=== PATIENT | male | born 1960 | race American Indian/Alaskan Native ===

== ENCOUNTER 2017-02-04 10:36 | Emergency (ER) | payer SELFPAY ==
[2017-02-04 11:30] VITALS: BP 130/95
[2017-02-04 12:10] LABS: Basophils % (Auto) 0.6 % (0.0-1.8); Eosinophils % (Auto) 1.8 % (0.0-4.3); Hematocrit 42.8 % (35.5-45.6); Hemoglobin 13.9 gm/dl (11.8-15.2); Mean Corpuscular HGB Conc 33 % (32-34); Mean Corpuscular Volume 80 fl (84-94); Platelet Count 159 K/mm3 (140-440); Red Blood Count 5.37 M/mm3 (3.65-5.03); White Blood Count 5.9 K/mm3 (4.5-11.0)
[2017-02-04 12:19] LABS: Mean Corpuscular Hemoglobin 26 pg (28-32)
[2017-02-04 12:26] LABS: Anion Gap 19 mmol/L; Blood Urea Nitrogen 33 mg/dL (9-20); Calcium 9.4 mg/dL (8.4-10.2); Carbon Dioxide 23 mmol/L (22-30); Chloride 99.9 mmol/L (98-107); Glucose 77 mg/dL (75-100); Potassium 3.3 mmol/L (3.6-5.0); Sodium 139 mmol/L (137-145)
[2017-02-04 12:30] LABS: Bilirubin,Urine NEG (Negative); Blood,Urine NEG (Negative); Ketones,Urine NEG (Negative); Leukocyte Esterase,Urine NEG (Negative); Mucus,Urine FEW /HPF; Nitrite,Urine NEG (Negative); Urobilinogen,Urine < 2.0 mg/dL (<2.0)
--- NOTE | 2017-02-07 13:47 | ED Elopement Review ---
ED Pt Elopement review - Results review Lab results: Laboratory Tests 02/04/17 02/04/17 02/04/17 11:32 11:43 11:43 WBC 5.9 RBC 5.37 H Hgb 13.9 Hct 42.8 MCV 80 L MCH 26 L MCHC 33 RDW 14.0 Plt Count 159 Lymph % (Auto) 54.5 H [place] % (Auto) 7.9 H Eos % (Auto) 1.8 Baso % (Auto) 0.6 Lymph # 3.2 [place] # 0.5 Eos # 0.1 Baso # 0.0 Seg Neutrophils % 35.2 L Seg Neutrophils # 2.1 Sodium 139 Potassium 3.3 L Chloride 99.9 Carbon Dioxide 23 Anion Gap 19 BUN 33 H Creatinine 1.2 Estimated GFR > 60 BUN/Creatinine Ratio 27.50 Glucose 77 POC Glucose 130 H Calcium 9.4 Urine Color Urine Turbidity Urine pH Ur Specific [place] Urine Protein Urine Glucose (UA) Urine Ketones Urine Blood Urine Nitrite Urine Bilirubin Urine Urobilinogen Ur Leukocyte Esterase Urine WBC (Auto) Urine RBC (Auto) U Epithel Cells (Auto) Urine Mucus 02/04/17 12:15 WBC RBC Hgb Hct MCV MCH MCHC RDW Plt Count Lymph % (Auto) [place] % (Auto) Eos % (Auto) Baso % (Auto) Lymph # [place] # Eos # Baso # Seg Neutrophils % Seg Neutrophils # Sodium Potassium Chloride Carbon Dioxide Anion Gap BUN Creatinine Estimated GFR BUN/Creatinine Ratio Glucose POC Glucose Calcium Urine Color Yellow Urine Turbidity Clear Urine pH 6.0 Ur Specific [place] 1.025 Urine Protein 30 mg/dl Urine Glucose (UA) Neg Urine Ketones Neg Urine Blood Neg Urine Nitrite Neg Urine Bilirubin Neg Urine Urobilinogen < 2.0 Ur Leukocyte Esterase Neg Urine WBC (Auto) 3.0 Urine RBC (Auto) 3.0 U Epithel Cells (Auto) < 1.0 Urine Mucus Few - Call Back decision Pt Call Back Decision: No action required
== END 2017-02-04 18:30 | disposition left against medical advice (07) ==
LOC: ED 10:36
DX: Z53.21 Procedure and treatment not carried out due to patient leaving prior to being seen by health care provider (principal)
CPT/HCPCS: 36415; 80048; 81001; 82962; 85025

== ENCOUNTER 2018-05-22 11:25 | Emergency (ER) | payer SELFPAY ==
[2018-05-22 11:40] VITALS: BP 131/89
--- NOTE | 2018-05-22 12:15 | Emergency Department Report ---
Minor Respiratory - HPI Chief Complaint: Upper Respiratory Infection Stated Complaint: CHEST/FEVER/CHILLS Time Seen by Provider: 05/22/18 12:04 Duration: 3 Days Pain Location: Nose Severity: mild Minor Respiratory: Yes Rhinorrhea, Yes Able to Tolerate Fluids, Yes Cough, Yes Fever, No Sore Throat, No Ear Pain, No Shortness of Breath Other History: Ms. Isaac is a 57-year-old male with history of diabetes and hypertension who presents with cough congestion and body aches. Slight wheezing. Patient has a history of tobacco abuse. He requests pain medicine for chronic neck pain due to cervical disc disease. ED Review of Systems ROS: Stated complaint: CHEST/FEVER/CHILLS Other details as noted in HPI Constitutional: fever, malaise Respiratory: cough Gastrointestinal: denies: abdominal pain, nausea, vomiting Neurological: denies: headache, numbness, paresthesias ED Past Medical Hx - Past Medical History Hx Hypertension: Yes Hx Diabetes: Yes - Surgical History Additional Surgical History: back fusion lower L-4&L5 - Social History Smoking Status: Never Smoker Substance Use Type: None - Medications Home Medications: Home Medications Medication Instructions Recorded Confirmed Last Taken Type Doxycycline Hyclate [Doxycycline 100 mg PO Q12HR 7 Days #14 tab 05/22/18 Unknown Rx Hyclate TAB] HYDROcodone/APAP 5-325 [[place] 1 each PO Q6HR PRN #10 tablet 05/22/18 Unknown Rx 5/325] predniSONE [Deltasone] 3 tab PO QDAY 4 Days #12 tab 05/22/18 Unknown Rx Minor Respiratory Exam - Exam General: Vital signs noted. No distress. Alert and acting appropriately. HEENT: Yes Moist Mucous Membranes, Yes Rhinorrhea, No Pharyngeal Erythema, No Pharyngeal Exudates, No Conjuctival Injection Neck: Yes Supple Lungs: Yes Good Air Exchange, Yes Wheezes (slight expiratory wheezes), Yes Cough , No Ronchi, No Stridor, No Labored Respirations, No Retractions, No Use of Accessory Muscles Heart: Yes Regular, No Murmur Abdomen: No Tenderness, No Peritoneal Signs Neurologic: Alert and oriented, no deficits. Musculoskeletal: Unremarkable. ED Course Vital Signs 05/22/18 11:38 Temperature 98.6 F Pulse Rate 65 Respiratory 20 Rate Blood Pressure 131/89 O2 Sat by Pulse 97 Oximetry ED Medical Decision Making - Medical Decision Making Procedure Poncho is a 57-year-old male presents with upper and lower respiratory symptoms. History of tobacco abuse, antibiotics are indicated. Prescribed doxycycline as well as prednisone. Given 10 tablets of [place] for chronic neck pain. [facility] for [facility] care. Strongly recommended smoking cessation. Critical care attestation.: If time is entered above; I have spent that time in minutes in the direct care of this critically ill patient, excluding procedure time. ED Disposition Clinical Impression: Acute bronchitis, Tobacco abuse, Chronic neck pain Disposition: TO HOME OR SELFCARE Is pt being admited?: No Does the pt Need Aspirin: No Condition: Stable Instructions: Acute Bronchitis (ED), How to Stop Smoking (ED) Prescriptions: Doxycycline Hyclate [Doxycycline Hyclate TAB] 100 mg PO Q12HR 7 Days #14 tab HYDROcodone/APAP 5-325 [[place] 5/325] 1 each PO Q6HR PRN #10 tablet PRN Reason: Pain predniSONE [Deltasone] 3 tab PO QDAY 4 Days #12 tab
== END 2018-05-22 12:20 | disposition home or self-care (01) ==
LOC: ED 11:25
DX: J20.9 Acute bronchitis, unspecified (principal); G89.29 Other chronic pain; M54.2 Cervicalgia; I10 Essential (primary) hypertension; E11.9 Type 2 diabetes mellitus without complications; F17.200 Nicotine dependence, unspecified, uncomplicated; Z88.9 Allergy status to unspecified drugs, medicaments and biological substances
CPT/HCPCS: 93005; 93010; 99282

== ENCOUNTER 2018-11-13 08:39 | Emergency (ER) | payer OTHER ==
[2018-11-13 09:34] LABS: Basophils % (Auto) 0.9 % (0.0-1.8); Eosinophils # (Auto) 0.1 K/mm3 (0.0-0.4); Eosinophils % (Auto) 2.4 % (0.0-4.3); Hematocrit 42.9 % (35.5-45.6); Hemoglobin 14.1 gm/dl (11.8-15.2); Lymphocytes # (Auto) 1.8 K/mm3 (1.2-5.4); Lymphocytes % (Auto) 34.7 % (13.4-35.0); Mean Corpuscular HGB Conc 33 % (32-34); Mean Corpuscular Volume 82 fl (84-94); Monocytes # (Auto) 0.5 K/mm3 (0.0-0.8); Monocytes % (Auto) 8.9 % (0.0-7.3); Platelet Count 233 K/mm3 (140-440); Red Blood Count 5.25 M/mm3 (3.65-5.03)
[2018-11-13 09:49] LABS: BUN/Creatinine Ratio 13; Blood Urea Nitrogen 10 mg/dL (9-20); Calcium 9.2 mg/dL (8.4-10.2); Hemolysis Index 22
[2018-11-13] MEDS ORDERED: ATIVAN IM PRN (10:20)
[2018-11-13] MEDS ORDERED: K-DUR PO ONE (10:20)
[2018-11-13] MEDS ORDERED: HALDOL IM PRN (10:20)
--- NOTE | 2018-11-13 10:29 | Emergency Department Report ---
ED General Adult HPI - General Chief complaint: Psych Stated complaint: SI Time Seen by Provider: 11/13/18 10:19 Source: patient, RN notes reviewed, old records reviewed Mode of arrival: Ambulatory Limitations: No Limitations - History of Present Illness Initial comments: This is a 58-year-old gentleman. The patient presents to the emergency room today with a complaint of suicidality. He denies homicidality. He denies hallucinations. He reports th at he plans to jump into a [place] and drown himself. His symptoms are constant. He reports no aggravating or relieving factors. He denies intention to overdose. On review of systems, also admits to chronic nonradiating, nontraumatic lower back pain. -: Gradual, days(s), month(s) Location: back Radiation: non-radiation Severity scale (0 -10): 0 Quality: aching Consistency: constant Improves with: none Worsens with: none - Related Data Previous Rx's Medication Instructions Recorded Last Taken Type HYDROcodone/APAP 5-325 [[place] 1 each PO Q6HR PRN #10 tablet 05/22/18 Unknown Rx 5/325] predniSONE [Deltasone] 3 tab PO QDAY 4 Days #12 tab 05/22/18 Unknown Rx Allergies Allergy/AdvReac Type Severity Reaction Status Date / Time gabapentin Allergy Anaphylaxis Verified 05/22/18 11:38 ED Review of Systems ROS: Stated complaint: SI Other details as noted in HPI Constitutional: malaise. denies: fever Eyes: denies: vision change ENT: denies: epistaxis Respiratory: denies: cough Cardiovascular: denies: chest pain Genitourinary: denies: dysuria Musculoskeletal: back pain Neurological: denies: headache Psychiatric: depression, suicidal thoughts. denies: homicidal thoughts ED Past Medical Hx - Past Medical History Hx Hypertension: Yes Hx Diabetes: Yes - Surgical History Past Surgical History?: Yes Additional Surgical History: back fusion lower L-4&L5 - Social History Smoking Status: Never Smoker Substance Use Type: None - Medications Home Medications: Home Medications Medication Instructions Recorded Confirmed Last Taken Type HYDROcodone/APAP 5-325 [[place] 1 each PO Q6HR PRN #10 tablet 05/22/18 11/13/18 Unknown Rx 5/325] predniSONE [Deltasone] 3 tab PO QDAY 4 Days #12 tab 05/22/18 11/13/18 Unknown Rx ED Physical Exam - General Limitations: No Limitations General appearance: alert, in no apparent distress - Head Head exam: Present: atraumatic, normocephalic - Eye Eye exam: Present: normal appearance, EOMI. Absent: nystagmus - ENT ENT exam: Present: normal exam, normal orophraynx, mucous membranes moist, normal external ear exam - Neck Neck exam: Present: normal inspection, full ROM. Absent: tenderness, meningismus - Respiratory Respiratory exam: Present: normal lung sounds bilaterally. Absent: respiratory distress, wheezes, rales, rhonchi, stridor, chest wall tenderness - Cardiovascular Cardiovascular Exam: Present: regular rate, normal rhythm, normal heart sounds. Absent: bradycardia, tachycardia, irregular rhythm, systolic murmur, diastolic murmur, rubs, gallop - GI/Abdominal GI/Abdominal exam: Present: soft. Absent: distended, tenderness, guarding, rebound, rigid, pulsatile mass - Rectal Rectal exam: Present: deferred - Extremities Exam Extremities exam: Present: normal inspection, full ROM, other (2+ pulses noted in the bilateral upper, lower extremities. Compartments soft. No long bony tenderness. The pelvis is stable.). Absent: pedal edema, joint swelling, calf tenderness - Back Exam Back exam: Present: normal inspection, full ROM. Absent: tenderness, CVA tenderness (R), paraspinal tenderness, vertebral tenderness - Neurological Exam Neurological exam: Present: alert, normal gait, other (Extraocular movements intact. Tongue midline. No facial droop. Facial sensation intact to light touch in the V1, V2, V3 distribution bilaterally. 5 and 5 strength in 4 extremities.. Sensation is intact to light touch in 4 extremities.). Absent: motor sensory deficit - Psychiatric Psychiatric exam: Present: agitated, suicidal ideation - Skin Skin exam: Present: warm, dry, intact, normal color. Absent: rash ED Course Vital Signs 11/13/18 08:46 Temperature 97.5 F L Pulse Rate 73 Respiratory 20 Rate Blood Pressure 141/109 [Right] O2 Sat by Pulse 98 Oximetry ED Medical Decision Making - Lab Data Result diagrams: 11/13/18 09:16 11/13/18 09:16 Vital Signs 11/13/18 08:46 Temperature 97.5 F L Pulse Rate 73 Respiratory 20 Rate Blood Pressure 141/109 [Right] O2 Sat by Pulse 98 Oximetry Lab Results 11/13/18 11/13/18 11/13/18 Range/Units 09:16 09:16 09:16 WBC (4.5-11.0) K/mm3 RBC (3.65-5.03) M/mm3 Hgb (11.8-15.2) gm/dl Hct (35.5-45.6) % MCV (84-94) fl MCH (28-32) pg MCHC (32-34) % RDW (13.2-15.2) % Plt Count (140-440) K/mm3 Lymph % (Auto) (13.4-35.0) % [place] % (Auto) (0.0-7.3) % Eos % (Auto) (0.0-4.3) % Baso % (Auto) (0.0-1.8) % Lymph # (1.2-5.4) K/mm3 [place] # (0.0-0.8) K/mm3 Eos # (0.0-0.4) K/mm3 Baso # (0.0-0.1) K/mm3 Seg Neutrophils % (40.0-70.0) % Seg Neutrophils # (1.8-7.7) K/mm3 Sodium 141 (137-145) mmol/L Potassium 3.2 L (3.6-5.0) mmol/L Chloride 103.1 (98-107) mmol/L Carbon Dioxide 25 (22-30) mmol/L Anion Gap 16 mmol/L BUN 10 (9-20) mg/dL Creatinine 0.8 (0.8-1.5) mg/dL Estimated GFR > 60 ml/min BUN/Creatinine Ratio 13 % Glucose 111 H (75-100) mg/dL Calcium 9.2 (8.4-10.2) mg/dL Magnesium (1.7-2.3) mg/dL Total Creatine Kinase (55-170) units/L Salicylates < 0.3 L (2.8-20.0) mg/dL Acetaminophen < 5.0 L (10.0-30.0) ug/mL Plasma/Serum Alcohol (0-0.07) % 11/13/18 11/13/18 11/13/18 Range/Units 09:16 09:16 09:16 WBC 5.1 (4.5-11.0) K/mm3 RBC 5.25 H (3.65-5.03) M/mm3 Hgb 14.1 (11.8-15.2) gm/dl Hct 42.9 (35.5-45.6) % MCV 82 L (84-94) fl MCH 27 L (28-32) pg MCHC 33 (32-34) % RDW 15.0 (13.2-15.2) % Plt Count 233 (140-440) K/mm3 Lymph % (Auto) 34.7 (13.4-35.0) % [place] % (Auto) 8.9 H (0.0-7.3) % Eos % (Auto) 2.4 (0.0-4.3) % Baso % (Auto) 0.9 (0.0-1.8) % Lymph # 1.8 (1.2-5.4) K/mm3 [place] # 0.5 (0.0-0.8) K/mm3 Eos # 0.1 (0.0-0.4) K/mm3 Baso # 0.0 (0.0-0.1) K/mm3 Seg Neutrophils % 53.1 (40.0-70.0) % Seg Neutrophils # 2.7 (1.8-7.7) K/mm3 Sodium (137-145) mmol/L Potassium (3.6-5.0) mmol/L Chloride (98-107) mmol/L Carbon Dioxide (22-30) mmol/L Anion Gap mmol/L BUN (9-20) mg/dL Creatinine (0.8-1.5) mg/dL Estimated GFR ml/min BUN/Creatinine Ratio % Glucose (75-100) mg/dL Calcium (8.4-10.2) mg/dL Magnesium 2.30 (1.7-2.3) mg/dL Total Creatine Kinase 868 H (55-170) units/L Salicylates (2.8-20.0) mg/dL Acetaminophen (10.0-30.0) ug/mL Plasma/Serum Alcohol < 0.01 (0-0.07) % - Medical Decision Making Differential diagnosis, including but not limited to: Mood disorder, depression, dysthymia, suicidality, medical clearance for psychiatric placement Assessment and plan: 58-year-old gentleman with complaint of suicidality. Physical exam unremarkable. Screening laboratory studies unremarkable with the exception of mild hypokalemia, with normal renal function, with normal magnesium, and this will be repleted. Elevated creatinine kinase reviewed and appreciated, does not meet the definition criteria for rhabdomyolysis. It does not require IV fluids, and it will decrease on its own with oral hydration. The patient is placed on a 1013, a psychiatric consultation has been requested. At this point in time, based off of the objective data and history and physical, the patient does not appear to have an immediate medical contraindication at this time psychiatric admission, evaluation, consultation placement. The crisis team was paged. Critical care attestation.: If time is entered above; I have spent that time in minutes in the direct care of this critically ill patient, excluding procedure time. ED Disposition Clinical Impression: Medical clearance for psychiatric admission Disposition: [id number]/TX-[id number] PSY HOSP/PSY UNIT Is pt being admited?: No Does the pt Need Aspirin: No Condition: Good Referrals: [facility] [Primary Care Provider] - 3-5 Days
[2018-11-13 11:59] LABS: Bilirubin,Urine NEG (Negative); Blood,Urine NEG (Negative); Color,Urine Yellow (Yellow); Mucus,Urine FEW /HPF; Protein,Urine <15 mg/dL mg/dL (Negative); WBC,Urine < 1.0 /HPF (0.0-6.0)
[2018-11-13 12:07] LABS: Amphetamine Screen,Urine PRESUMPTIVE NEGATIVE; Benzodiazepines Screen,Urine PRESUMPTIVE NEGATIVE; Cannabinoid Screen,Urine PRESUMPTIVE NEGATIVE; Methadone Screen,Urine PRESUMPTIVE NEGATIVE; Opiate Screen,Urine PRESUMPTIVE NEGATIVE
[2018-11-13 12:25] LABS: Cocaine Screen,Urine PRESUMPTIVE POSITIVE
--- NOTE | 2018-11-14 10:12 | Consultation ---
History of Present Illness - Reason for Consult Consult date: 11/14/18 Reason for consult: Mental Health Evaluation Requesting physician: BRUCE PETERSON - Chief Complaint Chief complaint: "I have no reason to live" - History of Present Psychiatric Illness 58 y.o. AA male who presented to the ER for SI's with a plan to jump off a bridge. Today the patient is calm during the assessment. He stated that he is dealing with several life stressors (homelessness and lack of finances) that has caused him to be suicidal with a plan. He stated that he have attempted suicide in the past. He stated that he is seen at the [facility] with a mental health dx of depression and PTSD. He stated that he is compliant with his medication (Cymbalta.) He stated that he use cocaine to self medicate to lower his depression. He rate his depression 8/10, with 10 being the worse. He denies a poor appetite and a erratic sleep. He denies any manic episodes in the past. He denies HI's and AVH's. He denies alcohol consumption (etoh). Medications and Allergies Allergies Allergy/AdvReac Type Severity Reaction Status Date / Time gabapentin Allergy Anaphylaxis Verified 05/22/18 11:38 Home Medications Medication Instructions Recorded Confirmed Last Taken Type HYDROcodone/APAP 5-325 [[place] 1 each PO Q6HR PRN #10 tablet 05/22/18 11/13/18 Un known Rx 5/325] predniSONE [Deltasone] 3 tab PO QDAY 4 Days #12 tab 05/22/18 11/13/18 Unknown Rx Active Meds: Active Medications Haloperidol Lactate (Haldol) 5 mg IM Q6HR PRN PRN Reason: Agitation Lorazepam (Ativan) 2 mg IM Q4HR PRN PRN Reason: Agitation Past psychiatric history - Past Medical History Past Medical History: diabetes, other (Chronic back pain) Past Surgical History: Other (Back Surgery) - past Psychiatric treatment and history psychiatric treatment history: Seen by the CT for outpatient psy services. Denies a fam psy hx. - Social History Social history: other (Homeless) Mental Status Exam - Vital signs Last Vital Signs Temp 98.0 F 11/14/18 09:05 Pulse 82 11/14/18 09:05 Resp 20 11/14/18 09:05 BP 123/86 11/14/18 09:05 Pulse Ox 98 11/14/18 09:05 - Exam Narrative exam: MSE: Appearance: calm Behavior: regular eye contact Speech: regular rate and tone Mood:: withdrawn, sad Affect: flat Thought Process: circumstantial Thought Content: denies HI' and AVH's Motor Activity: sitting up in bed Cognition: A/O x3 Insight: fair Judgment: poor Results Result Diagrams: 11/13/18 09:16 11/13/18 09:16 Abnormal lab results 11/13/18 11/13/18 11/13/18 Range/Units 09:16 09:16 09:16 Total Creatine Kinase 868 H (55-170) units/L Salicylates < 0.3 L (2.8-20.0) mg/dL Acetaminophen < 5.0 L (10.0-30.0) ug/mL All other labs normal. Assessment and Plan Assessment and plan: Impression: MDD, Severe Type. Hx of PTSD. Substance Use DO. Today the patient is calm during the assessment. The patient endorses SI's with a plan. DDx: Substance Induced Mood DO Recommendation/Plan: Continue 1013 and start Cymbalta 60 mg PO daily for depression. Discussed possible suicidality/medication induced remi with the patient reference Cymbalta. Case Mgmt involvement, the patient may need assistance with placement if discharged from [facility]. Dispo: The patient was referred to inpatient psy services. Staffed with Dr Alicja Lowry.
[2018-11-14] MEDS ORDERED: CYMBALTA PO SCH (11:00)
[2018-11-14 18:36] VITALS: BP 113/73
[2018-11-14] MEDS ORDERED: CEPHULAC ONE (18:45)
== END 2018-11-14 20:49 ==
LOC: ED 08:39 → EEVIPCON 08:39 → ED 11-14 20:49
DX: F32.9 Major depressive disorder, single episode, unspecified (principal); I10 Essential (primary) hypertension; E11.9 Type 2 diabetes mellitus without complications; F43.10 Post-traumatic stress disorder, unspecified; Z79.899 Other long term (current) drug therapy; Z88.6 Allergy status to analgesic agent; Z59.0 Homelessness
CPT/HCPCS: 36415; 80048; 80307; 81001; 82550; 83735; 85025; 99285; G0480; 80320